=== PATIENT | male | born 1950 | race Caucasian/White ===

== ENCOUNTER 2022-10-25 16:22 | Observation (INO) | payer MEDICARE ==
[2022-10-25 17:00] LABS: Absolute Neutrophil Ct (ANC) 4.59 x10^3/uL (1.4-6.9); Basophil (Absolute #) 0.03 x10^3/uL (0-0.4); Eosinophil % 1.3 % (0.00-5.0); Eosinophil (Absolute #) 0.09 x10^3/uL (0-0.5); Hematocrit 38.1 % (42-50); Hemoglobin 11.5 g/dL (12.5-18.0); Lymphocytes % 22.5 % (24.0-44.0); Mean Cell Volume 107.6 fL (78-100); Mean Corpuscular Hemoglobin 32.5 pg (26-32); Mean Corpuscular Hgb Concent. 30.2 g/dL (32-36); Monocyte (Absolute #) 0.77 x10^3/uL (0.0-1.3); Monocytes % 10.8 % (0.0-12.0); Neutrophil % 64.4 % (36.0-66.0); Platelet Count 164 x10^3/uL (150-450); Red Blood Count 3.54 x10^6/uL (4.1-5.6); Red Cell Distribution Width 12.9 % (11.5-14.0); White Blood Count 7.1 x10^3/uL (4.0-10.5)
--- NOTE | 2022-10-25 17:03 | XRAY ---
Indication: Right chest pain 1 week. Comparison: None Portable chest inflated and clear. Heart not enlarged with CABG. Bony thorax intact with osteopenia and degenerative changes. Impression: Nonacute chest with chronic features.
[2022-10-25] MEDS ORDERED: BABY ASPIRIN 81 MG CHEW PO ONE (17:24)
[2022-10-25] MEDS ORDERED: BABY ASPIRIN 81 MG CHEW ONE (17:25)
[2022-10-25 17:32] LABS: ALBUMIN 4.3 g/dL (3.5-5.0); ALKALINE PHOSPHATASE 90 U/L (38-126); ANION GAP 14.6 MEQ/L (5-15); BLOOD UREA NITROGEN 23 mg/dL (9-20); CHLORIDE 100 mmol/L (98-107); Calcium 8.8 mg/dL (8.4-10.2); Carbon Dioxide 26 mmol/L (22-30); Creatinine 1 1.01 mg/dL (0.66-1.25); EST GLOMERULAR FILTRATION RATE > 60.0 ML/MIN; Glucose 149 mg/dL (74-106); NT PRO BNP 302 pg/mL (0-900); Potassium 4.9 mmol/L (3.5-5.1); SGOT/AST 31 U/L (17-59); SGPT/ALT 19 U/L (0-50); SODIUM 136 mmol/L (137-145); Total Protein 7.2 g/dL (6.3-8.2)
--- NOTE | 2022-10-25 18:04 | ERPHSYRPT ---
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 Patient has been experiencing intermittent chest pain for approximately 1 week. Chest pain worse with exertion improves with rest. Patient has a history of CABG. Pain rated 5 out of 10. Patient states he recently moved locally from [place]. No associated nausea vomiting or diaphoresis. Symptoms are intermittent. Symptoms are moderate in intensity. Patient voices no other complaint or concerns at this time. Portions of this note were created with voice recognition technology. There may be grammatical, spelling, punctuation or sound alike errors Timing/Duration: week(s) (1 week) Activities at Onset: activity Quality: aching Location: substernal Chest Pain Radiation: no radiation Severity of Pain-Max: moderate Severity of Pain-Current: mild Modifying Factors: Improves With: nothing Associated Symptoms: denies symptoms Prior Chest Pain/Cardiac Workup: no prior chest pain Nitro Today/Relief: no nitro taken today Aspirin Treatment Today: no aspirin today Allergies/Adverse Reactions: Penicillins Allergy (Verified 10/25/22 16:45) Home Medications: Clopidogrel Bisulfate [PLAVIX Tablet] 75 mg PO DAILY 10/25/22 [History] Glipizide 5 mg [Glucotrol 5 MG] 5 mg PO DAILY 10/25/22 [History] Metformin HCl [Metformin ER Osmotic] 1,000 mg PO BID 10/25/22 [History] Sertraline HCl [Zoloft] 100 mg PO DAILY 10/25/22 [History] lisinopriL [Zestril] 2.5 mg PO DAILY 10/25/22 [History] Hx Influenza Vaccination/Date Given: Yes Immunizations Up to Date: Yes Travel Risk - International Travel Have you traveled outside of the country in past 3 weeks: No - Coronavirus Screening Are you exhibiting any of the following symptoms?: No Close contact with a COVID-19 positive Pt in past 14-21 Days: No - Vaccine Status Have you recieved a Covid-19 vaccination: Yes 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: [employer] - Vaccination Dates Date of 2cond Vaccination (if applicable): 2020 - Review of Systems Constitutional: No Symptoms, No Fever, No Chills Eyes: No Symptoms Ears, Nose, & Throat: No Symptoms Respiratory: No Symptoms, No Cough, No Dyspnea Cardiac: No Symptoms, No Chest Pain, No Edema, No Syncope Abdominal/Gastrointestinal: No Symptoms, No Abdominal Pain, No Nausea, No Vomiting, No Diarrhea Genitourinary Symptoms: No Symptoms, No Dysuria Musculoskeletal: No Symptoms, No Back Pain, No Neck Pain Skin: No Symptoms, No Rash Neurological: No Symptoms, No Dizziness, No Focal Weakness, No Sensory Changes Psychological: No Symptoms Endocrine: No Symptoms Hematologic/Lymphatic: No Symptoms Immunological/Allergic: No Symptoms All Other Systems: Reviewed and Negative - Past Medical History Pertinent Past Medical History: Yes Cardiac History: High Cholesterol, Hypertension, Myocardial Infarction ([place]) Endocrine Medical History: Diabetes Type II Psycho-Social History: Anxiety - Past Surgical History Past Surgical History: Yes Cardiac: CABG Musculoskeletal: Orthopedic Surgery - Social History Smoking Status: Current every day smoker Exposure to second hand smoke: Yes Drug Use: none Patient Lives Alone: No - Nursing Vital Signs Nursing Vital Signs: Initial Vital Signs Temperature 97.5 F 10/25/22 16:23 Pulse Rate 75 10/25/22 16:23 Respiratory Rate 14 10/25/22 16:23 Blood Pressure 112/92 10/25/22 16:23 O2 Sat by Pulse Oximetry 99 10/25/22 16:23 Pain Scale Pain Intensity 3 - Physical Exam General Appearance: no apparent distress, alert Eye Exam: PERRL/EOMI, eyes nml inspection Ears, Nose, Throat Exam: normal ENT inspection, moist mucous membranes Neck Exam: normal inspection, non-tender, supple, full range of motion Respiratory Exam: normal breath sounds, lungs clear, airway intact, No resp iratory distress Cardiovascular Exam: regular rate/rhythm, normal heart sounds, normal peripheral pulses Gastrointestinal/Abdomen Exam: soft, normal bowel sounds, No tenderness, No mass Back Exam: normal inspection, No CVA tenderness, No vertebral tenderness Extremity Exam: normal inspection, normal range of motion Neurologic Exam: alert, oriented x 3, cooperative, normal mood/affect, sensation nml, No motor deficits Skin Exam: normal color, warm, dry Lymphatic Exam: No adenopathy SpO2 Interpretation: normal SpO2: 96 O2 Delivery: Room Air - Course Nursing assessment & vital signs reviewed: Yes EKG Interpreted by Me: RATE (75), Sinus Rhythm, Right [place] Deviation, NORMAL INTERVALS, NORMAL QRS - Radiology Exams Chest X-ray Interpretation: Teleradiologist Report (Nonacute chest with chronic features) Ordered Tests: Active Orders 24 hr Category Date Time Status 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 Care 10/25/22 16:45 Active EKG-ER Only STAT Care 10/25/22 16:44 Active IV Insertion STAT Care 10/25/22 16:44 Active Pulse Oximetry (ED) STAT Care 10/25/22 16:44 Active CHEST 1 VIEW (PORTABLE) Stat Exams 10/25/22 16:44 Completed CBC W DIFF Stat Lab 10/25/22 16:58 Completed CMP Stat Lab 10/25/22 16:58 Completed NT PRO BNP Stat Lab 10/25/22 16:58 Completed TROPONIN Q4H Lab 10/25/22 16:58 Completed TROPONIN Q4H Lab 10/25/22 20:45 Ordered TROPONIN Q4H Lab 10/26/22 00:45 Ordered UA W/RFX CULTURE Stat Lab 10/25/22 Ordered Medication Summary Discontinued Medications Generic Name Dose Route Start Last Admin Trade Name Freq PRN Reason Stop Dose Admin Aspirin 243 mg 10/25/22 17:24 10/25/22 17:25 Aspirin 81 Mg Tab.Chew PO 10/25/22 17:25 243 mg STAT ONE Administration Aspirin Confirm 10/25/22 17:25 Aspirin 81 Mg Tab.Chew Administered 10/25/22 17:26 Dose 243 mg .ROUTE .STK-MED ONE Nitroglycerin 1 gm 10/25/22 19:53 Nitroglycerin 1 Gm Packet TOP 10/25/22 19:54 STAT ONE Lab/Rad Data: Laboratory Result Diagrams 10/25/22 16:58 10/25/22 16:58 Laboratory Results 10/25/22 10/25/22 10/25/22 Range/Units 18:45 16:58 16:58 WBC (4.0-10.5) x10^3/uL RBC (4.1-5.6) x10^6/uL Hgb (12.5-18.0) g/dL Hct (42-50) % MCV (78-100) fL MCH (26-32) pg MCHC (32-36) g/dL RDW (11.5-14.0) % Plt Count (150-450) x10^3/uL MPV (7.5-11.0) fL Gran % (36.0-66.0) % Immature Gran % (Auto) (0.00-0.4) % Nucleat RBC Rel Count (0.00-0.1) % Eos # (Auto) (0-0.5) x10^3/uL Immature Gran # (Auto) (0.00-0.03) x10^3u/L Absolute Lymphs (auto) (1.0-4.6) x10^3/uL Absolute Monos (auto) (0.0-1.3) x10^3/uL Absolute Nucleated RBC (0.00-0.01) x10^3u/L Lymphocytes % (24.0-44.0) % Monocytes % (0.0-12.0) % Eosinophils % (0.00-5.0) % Basophils % (0.0-0.4) % Absolute Granulocytes (1.4-6.9) x10^3/uL Basophils # (0-0.4) x10^3/uL Sodium 136 L (137-145) mmol/L Potassium 4.9 (3.5-5.1) mmol/L Chloride 100 (98-107) mmol/L Carbon Dioxide 26 (22-30) mmol/L Anion Gap 14.6 (5-15) MEQ/L BUN 23 H (9-20) mg/dL Creatinine 1.01 (0.66-1.25) mg/dL Estimated GFR > 60.0 ML/MIN Glucose 149 H (74-106) mg/dL Calcium 8.8 (8.4-10.2) mg/dL Total Bilirubin 0.40 (0.2-1.3) mg/dL AST 31 (17-59) U/L ALT 19 (0-50) U/L Alkaline Phosphatase 90 (38-126) U/L Troponin I < 0.012 (0.000-0.034) ng/mL NT-Pro-B Natriuret Pep 302 (0-900) pg/mL Serum Total Protein 7.2 (6.3-8.2) g/dL Albumin 4.3 (3.5-5.0) g/dL Influenza Type A Ag NEGATIVE (NEGATIVE) Influenza Type B Ag NEGATIVE (NEGATIVE) RSV (PCR) NEGATIVE (Negative) SARS-CoV-2 (PCR) NEGATIVE (NEGATIVE) 10/25/22 Range/Units 16:58 WBC 7.1 (4.0-10.5) x10^3/uL RBC 3.54 L (4.1-5.6) x10^6/uL Hgb 11.5 L (12.5-18.0) g/dL Hct 38.1 L (42-50) % MCV 107.6 H (78-100) fL MCH 32.5 H (26-32) pg MCHC 30.2 L (32-36) g/dL RDW 12.9 (11.5-14.0) % Plt Count 164 (150-450) x10^3/uL MPV 11.0 (7.5-11.0) fL Gran % 64.4 (36.0-66.0) % Immature Gran % (Auto) 0.6 H (0.00-0.4) % Nucleat RBC Rel Count 0.0 (0.00-0.1) % Eos # (Auto) 0.09 (0-0.5) x10^3/uL Immature Gran # (Auto) 0.04 H (0.00-0.03) x10^3u/L Absolute Lymphs (auto) 1.60 (1.0-4.6) x10^3/uL Absolute Monos (auto) 0.77 (0.0-1.3) x10^3/uL Absolute Nucleated RBC 0.00 (0.00-0.01) x10^3u/L Lymphocytes % 22.5 L (24.0-44.0) % Monocytes % 10.8 (0.0-12.0) % Eosinophils % 1.3 (0.00-5.0) % Basophils % 0.4 (0.0-0.4) % Absolute Granulocytes 4.59 (1.4-6.9) x10^3/uL Basophils # 0.03 (0-0.4) x10^3/uL Sodium (137-145) mmol/L Potassium (3.5-5.1) mmol/L Chloride (98-107) mmol/L Carbon Dioxide (22-30) mmol/L Anion Gap (5-15) MEQ/L BUN (9-20) mg/dL Creatinine (0.66-1.25) mg/dL Estimated GFR ML/MIN Glucose (74-106) mg/dL Calcium (8.4-10.2) mg/dL Total Bilirubin (0.2-1.3) mg/dL AST (17-59) U/L ALT (0-50) U/L Alkaline Phosphatase (38-126) U/L Troponin I (0.000-0.034) ng/mL NT-Pro-B Natriuret Pep (0-900) pg/mL Serum Total Protein (6.3-8.2) g/dL Albumin (3.5-5.0) g/dL Influenza Type A Ag (NEGATIVE) Influenza Type B Ag (NEGATIVE) RSV (PCR) (Negative) SARS-CoV-2 (PCR) (NEGATIVE) - Progress Progress: improved Air Movement: good Progress Note: 72-year-old male with a history of diabetes CABG presents to our ED with progressive chest pain. Preliminary work-up negative. But based on heart score patient will be admitted for further evaluation and treatment. Aspirin administered. Nitro paste administered. Case discussed with Dr. Varela who accepts admission to observation. Plan of care discussed with patient. He agrees to admission at [facility] for further evaluation and treatment. Portions of this note were created with voice recognition technology. There may be grammatical, spelling, punctuation or sound alike errors 10/25/22 19:57 Blood Culture(s) Obtained: No Antibiotics given: No Discussed with : Gerson Will see patient in: hospital (observation) Counseled pt/family regarding: lab results, diagnosis, rad results - Departure Departure Disposition: Observation Clinical Impression: Chest pain, Megaloblastic anemia Condition: Stable Critical Care Time: No Referrals: JERONIMO BACA, [Primary Care Provider] - Follow up/PCP as directed
[2022-10-25 19:28] LABS: INFLUENZA A NEGATIVE (NEGATIVE); INFLUENZA B NEGATIVE (NEGATIVE); RESPIRATORY SYNCTIAL VIRUS NEGATIVE (Negative); SARS-CoV-2 Xpert Express NEGATIVE (NEGATIVE)
[2022-10-25] MEDS ORDERED: NITRO-BID 2% UD PACKETS TOP ONE (19:53)
[2022-10-25] MEDS ORDERED: NITRO-BID 2% UD PACKETS ONE (20:23)
[2022-10-25] MEDS ORDERED: Zofran 4 MG/2 ML VIAL IV PRN (20:44)
[2022-10-25] MEDS ORDERED: TYLENOL 325 MG PO PRN (20:44)
[2022-10-25] MEDS ORDERED: Senokot-S Tablet PO PRN (20:44)
[2022-10-25] MEDS ORDERED: MILK OF MAGNESIA 30 ML PO PRN (20:44)
[2022-10-25] MEDS ORDERED: MAALOX ES 30 ML UNIT DOSE PO PRN (20:44)
[2022-10-25] MEDS ORDERED: Glucophage 500 MG ONE (21:58)
[2022-10-25] MEDS ORDERED: Glucophage XR 500 MG PO ONE (22:01)
[2022-10-25] MEDS ORDERED: NICODERM CQ 14 MG TOP SCH (22:30)
[2022-10-25 23:40] LABS: Epithelial Cells RARE /HPF (FEW)
[2022-10-25 23:42] LABS: Appearance CLEAR (CLEAR); Bilirubin NEGATIVE (NEGATIVE); Glucose NEGATIVE (NEGATIVE); Ketones NEGATIVE (NEGATIVE); Ph 6.5 (5-6); Protein,Urine Dip NEGATIVE (Negative); RBC NEGATIVE Ery/ul (0-5); Specific Gravity 1.015 (1.005-1.025)
[2022-10-25 23:43] LABS: Dipstick done @ ? MAIN LAB; Nitrite NEGATIVE (NEGATIVE); Urine Cultured Indicated? NO; Urobilinogen 0.2 mg/dL (0-1)
[2022-10-26 06:19] LABS: Cholesterol 88 mg/dL (50-200); HDL CHOLESTEROL 34 mg/dL (40-60); LDL, DIRECT < 36 mg/dL (30-100); Risk Ratio 2.6; TRIGLYCERIDE 178 mg/dL (30-150)
[2022-10-26] MEDS ORDERED: Ecotrin 325 MG PO SCH (10:00)
[2022-10-26 11:51] VITALS: BP 128/67; PULSE 76; O2SAT 93
--- NOTE | 2022-10-26 13:41 | PCM.SSS ---
History of Present Illness - Chief Complaint Chief Complaint: ACS History of Present Illness: is a 72 year old male with Hx CAD who presented to ER C/O intermittent chest pain x 1 week. Patient has just moved,drove himself to [facility] from [place]. Denies N/V or diaphoresis. ER evaluation - EKG NSR with right axis deviation,troponins were not elevated. CXR no acute changes. PMHx includes HTN,HLD,CAD/S/P CABG, DM2,COPD ,current smoker and chronic anxiety. Patient is admitted to [facility] OBS. R/O MA. Medications & Allergies Home Medications: Home Medication List Clopidogrel Bisulfate [PLAVIX Tablet] 75 mg PO DAILY 10/25/22 [History Confirmed 10/25/22] Glipizide 5 mg [Glucotrol 5 MG] 10 mg PO BID 10/25/22 [History Confirmed 10/26/22] Metformin HCl [Metformin ER Osmotic] 1,000 mg PO BID 10/25/22 [History Confirmed 10/25/22] RX: lisinopriL [Zestril] 2.5 mg PO DAILY 10/25/22 [History Confirmed 10/25/22] Sertraline HCl [Zoloft] 50 mg PO DAILY 10/25/22 [History Confirmed 10/26/22] Aspirin EC 81 mg [Ecotrin 81 mg] 81 mg PO DAILY 10/26/22 [History Confirmed 10/26/22] Atorvastatin Calcium [Lipitor] 80 mg PO HS 10/26/22 [History Confirmed 10/26/22] Carvedilol 3.125 mg [Coreg 3.125 MG] 3.125 mg PO BID 10/26/22 [History Confirmed 10/26/22] Ferrous Sulfate 325 mg [Feosol 325 mg] 325 mg PO DAILY 10/26/22 [History Confirmed 10/26/22] RX: Albuterol Common Canister [Ventolin Common Canister] 2 puff IH Q4HPRN PRN 30 Days #1 inhaler 10/26/22 [Rx] RX: Famotidine 20 mg [Pepcid 20 MG] 20 mg PO BID 10/26/22 [History Confirmed 10/26/22] RX: Pioglitazone HCl 30 mg PO DAILY 10/26/22 [History Confirmed 10/26/22] RX: Tamsulosin HCl 0.4 mg [Flomax 0.4 MG] 0.4 mg PO DAILY 10/26/22 [History Confirmed 10/26/22] RX: Trazodone HCl 50 mg [Desyrel 50 mg] 50 mg PO HS 30 Days #30 tablet [Rx] Allergies/Adverse Reactions: Allergies Allergy/AdvReac Type Severity Reaction Status Date / Time Penicillins Allergy Verified 10/25/22 16:45 - Past Medical History Past Medical History: Yes Neurological History: No Pertinent History ENT History: No Pertinent History Cardiac History: High Cholesterol, Hypertension, Myocardial Infarction (MA) Respiratory History: No Pertinent History Endocrine Medical History: Diabetes Type II Musculoskelatal History: No Pertinent History GI Medical History: No Pertinent History History: No Pertinent History Pyscho-Social History: Anxiety Male Reproductive Disorders: No Pertinent History - Past Surgical History Past Surgical History: Yes Neuro Surgical History: No Pertinent History Cardiac History: CABG GI Surgical History: No Pertinent History Genitourinary Surgical Hx: No Pertinent History Musculskeletal Surgical Hx: Orthopedic Surgery Male Surgical History: No Pertinent History Other Surgical History: lt wrist, rt elbow, rt shoulder - Social History Smoking Status: Current every day smoker Exposure to second hand smoke: No Alcohol: None Drug Use: none - Physical Exam Vital Signs: Vital Signs - 24 hr Temp Pulse Resp BP Pulse Ox 10/26/22 11:50 98.3 F 76 19 128/67 93 L 10/26/22 07:35 97.9 F 66 18 139/71 90 L 10/26/22 04:00 97.7 F 65 17 129/67 89 L 10/25/22 21:10 97.3 F 72 18 141/85 96 10/25/22 21:09 97.3 F 73 16 137/77 91 L 10/25/22 20:07 72 18 141/85 96 10/25/22 19:58 96 10/25/22 19:36 72 19 129/89 95 10/25/22 18:00 74 16 125/75 97 10/25/22 17:26 96 10/25/22 17:00 76 18 123/88 96 10/25/22 16:23 97.5 F 75 14 112/92 99 General Appearance: no apparent distress Neurologic Exam: alert, oriented x 3, cooperative, normal mood/affect, nml cerebellar function Eye Exam: eyes nml inspection Ears, Nose, Throat Exam: normal ENT inspection Neck Exam: normal inspection Respiratory Exam: wheezing Cardiovascular Exam: regular rate/rhythm Gastrointestinal/Abdomen Exam: soft, No tenderness Rectal Exam: not done Back Exam: muscle spasm, other, No CVA tenderness Results - Labs Lab/Micro Results: Lab Results-Last 24 Hours 10/25/22 10/25/22 10/25/22 Range/Units 16:58 16:58 16:58 WBC 7.1 (4.0-10.5) x10^3/uL RBC 3.54 L (4.1-5.6) x10^6/uL Hgb 11.5 L (12.5-18.0) g/dL Hct 38.1 L (42-50) % MCV 107.6 H (78-100) fL MCH 32.5 H (26-32) pg MCHC 30.2 L (32-36) g/dL RDW 12.9 (11.5-14.0) % Plt Count 164 (150-450) x10^3/uL MPV 11.0 (7.5-11.0) fL Gran % 64.4 (36.0-66.0) % Immature Gran % (Auto) 0.6 H (0.00-0.4) % Nucleat RBC Rel Count 0.0 (0.00-0.1) % Eos # (Auto) 0.09 (0-0.5) x10^3/uL Immature Gran # (Auto) 0.04 H (0.00-0.03) x10^3u/L Absolute Lymphs (auto) 1.60 (1.0-4.6) x10^3/uL Absolute Monos (auto) 0.77 (0.0-1.3) x10^3/uL Absolute Nucleated RBC 0.00 (0.00-0.01) x10^3u/L Lymphocytes % 22.5 L (24.0-44.0) % Monocytes % 10.8 (0.0-12.0) % Eosinophils % 1.3 (0.00-5.0) % Basophils % 0.4 (0.0-0.4) % Absolute Granulocytes 4.59 (1.4-6.9) x10^3/uL Basophils # 0.03 (0-0.4) x10^3/uL Sodium 136 L (137-145) mmol/L Potassium 4.9 (3.5-5.1) mmol/L Chloride 100 (98-107) mmol/L Carbon Dioxide 26 (22-30) mmol/L Anion Gap 14.6 (5-15) MEQ/L BUN 23 H (9-20) mg/dL Creatinine 1.01 (0.66-1.25) mg/dL Estimated GFR > 60.0 ML/MIN Glucose 149 H (74-106) mg/dL POC Glucometer (74 to 106) mg/dL Calcium 8.8 (8.4-10.2) mg/dL Total Bilirubin 0.40 (0.2-1.3) mg/dL AST 31 (17-59) U/L ALT 19 (0-50) U/L Alkaline Phosphatase 90 (38-126) U/L Troponin I < 0.012 (0.000-0.034) ng/mL NT-Pro-B Natriuret Pep 302 (0-900) pg/mL Serum Total Protein 7.2 (6.3-8.2) g/dL Albumin 4.3 (3.5-5.0) g/dL Triglycerides (30-150) mg/dL Cholesterol (50-200) mg/dL LDL Cholesterol (30-100) mg/dL HDL Cholesterol (40-60) mg/dL Heart Disease Risk Ratio Urinalys Dipstick Clnc Urine Color (YELLOW) Urine Appearance (CLEAR) Urine pH (5-6) Ur Specific [place] (1.005-1.025) POC Urine Protein Conf (Negative) Urine Ketones (NEGATIVE) Urine Nitrite (NEGATIVE) Urine Bilirubin (NEGATIVE) Urine Urobilinogen (0-1) mg/dL Urine Leukocytes (NEGATIVE) Urine WBC (Auto) (0-5) /HPF Urine RBC (Auto) U Epithel Cells (Auto) (FEW) /HPF Urine Bacteria (Auto) Urine RBC (0-5) Gunnar/ul Ur Culture Indicated? Urine Glucose (NEGATIVE) mg/dL Influenza Type A Ag (NEGATIVE) Influenza Type B Ag (NEGATIVE) RSV (PCR) (Negative) SARS-CoV-2 (PCR) (NEGATIVE) 10/25/22 10/25/22 10/25/22 Range/Units 18:45 21:05 23:25 WBC (4.0-10.5) x10^3/uL RBC (4.1-5.6) x10^6/uL Hgb (12.5-18.0) g/dL Hct (42-50) % MCV (78-100) fL MCH (26-32) pg MCHC (32-36) g/dL RDW (11.5-14.0) % Plt Count (150-450) x10^3/uL MPV (7.5-11.0) fL Gran % (36.0-66.0) % Immature Gran % (Auto) (0.00-0.4) % Nucleat RBC Rel Count (0.00-0.1) % Eos # (Auto) (0-0.5) x10^3/uL Immature Gran # (Auto) (0.00-0.03) x10^3u/L Absolute Lymphs (auto) (1.0-4.6) x10^3/uL Absolute Monos (auto) (0.0-1.3) x10^3/uL Absolute Nucleated RBC (0.00-0.01) x10^3u/L Lymphocytes % (24.0-44.0) % Monocytes % (0.0-12.0) % Eosinophils % (0.00-5.0) % Basophils % (0.0-0.4) % Absolute Granulocytes (1.4-6.9) x10^3/uL Basophils # (0-0.4) x10^3/uL Sodium (137-145) mmol/L Potassium (3.5-5.1) mmol/L Chloride (98-107) mmol/L Carbon Dioxide (22-30) mmol/L Anion Gap (5-15) MEQ/L BUN (9-20) mg/dL Creatinine (0.66-1.25) mg/dL Estimated GFR ML/MIN Glucose (74-106) mg/dL POC Glucometer (74 to 106) mg/dL Calcium (8.4-10.2) mg/dL Total Bilirubin (0.2-1.3) mg/dL AST (17-59) U/L ALT (0-50) U/L Alkaline Phosphatase (38-126) U/L Troponin I < 0.012 (0.000-0.034) ng/mL NT-Pro-B Natriuret Pep (0-900) pg/mL Serum Total Protein (6.3-8.2) g/dL Albumin (3.5-5.0) g/dL Triglycerides (30-150) mg/dL Cholesterol (50-200) mg/dL LDL Cholesterol (30-100) mg/dL HDL Cholesterol (40-60) mg/dL Heart Disease Risk Ratio Urinalys Dipstick Clnc MAIN LAB Urine Color YELLOW (YELLOW) Urine Appearance CLEAR (CLEAR) Urine pH 6.5 (5-6) Ur Specific [place] 1.015 (1.005-1.025) POC Urine Protein Conf NEGATIVE (Negative) Urine Ketones NEGATIVE (NEGATIVE) Urine Nitrite NEGATIVE (NEGATIVE) Urine Bilirubin NEGATIVE (NEGATIVE) Urine Urobilinogen 0.2 (0-1) mg/dL Urine Leukocytes NEGATIVE (NEGATIVE) Urine WBC (Auto) NONE (0-5) /HPF Urine RBC (Auto) Not Reportable U Epithel Cells (Auto) RARE (FEW) /HPF Urine Bacteria (Auto) Not Reportable Urine RBC NEGATIVE (0-5) Gunnar/ul Ur Culture Indicated? NO Urine Glucose NEGATIVE (NEGATIVE) mg/dL Influenza Type A Ag NEGATIVE (NEGATIVE) Influenza Type B Ag NEGATIVE (NEGATIVE) RSV (PCR) NEGATIVE (Negative) SARS-CoV-2 (PCR) NEGATIVE (NEGATIVE) 10/26/22 10/26/22 10/26/22 Range/Units 00:35 04:35 07:05 WBC (4.0-10.5) x10^3/uL RBC (4.1-5.6) x10^6/uL Hgb (12.5-18.0) g/dL Hct (42-50) % MCV (78-100) fL MCH (26-32) pg MCHC (32-36) g/dL RDW (11.5-14.0) % Plt Count (150-450) x10^3/uL MPV (7.5-11.0) fL Gran % (36.0-66.0) % Immature Gran % (Auto) (0.00-0.4) % Nucleat RBC Rel Count (0.00-0.1) % Eos # (Auto) (0-0.5) x10^3/uL Immature Gran # (Auto) (0.00-0.03) x10^3u/L Absolute Lymphs (auto) (1.0-4.6) x10^3/uL Absolute Monos (auto) (0.0-1.3) x10^3/uL Absolute Nucleated RBC (0.00-0.01) x10^3u/L Lymphocytes % (24.0-44.0) % Monocytes % (0.0-12.0) % Eosinophils % (0.00-5.0) % Basophils % (0.0-0.4) % Absolute Granulocytes (1.4-6.9) x10^3/uL Basophils # (0-0.4) x10^3/uL Sodium (137-145) mmol/L Potassium (3.5-5.1) mmol/L Chloride (98-107) mmol/L Carbon Dioxide (22-30) mmol/L Anion Gap (5-15) MEQ/L BUN (9-20) mg/dL Creatinine (0.66-1.25) mg/dL Estimated GFR ML/MIN Glucose (74-106) mg/dL POC Glucometer 73 L (74 to 106) mg/dL Calcium (8.4-10.2) mg/dL Total Bilirubin (0.2-1.3) mg/dL AST (17-59) U/L ALT (0-50) U/L Alkaline Phosphatase (38-126) U/L Troponin I < 0.012 (0.000-0.034) ng/mL NT-Pro-B Natriuret Pep (0-900) pg/mL Serum Total Protein (6.3-8.2) g/dL Albumin (3.5-5.0) g/dL Triglycerides 178 H (30-150) mg/dL Cholesterol 88 (50-200) mg/dL LDL Cholesterol < 36 (30-100) mg/dL HDL Cholesterol 34 L (40-60) mg/dL Heart Disease Risk Ratio 2.6 Urinalys Dipstick Clnc Urine Color (YELLOW) Urine Appearance (CLEAR) Urine pH (5-6) Ur Specific [place] (1.005-1.025) POC Urine Protein Conf (Negative) Urine Ketones (NEGATIVE) Urine Nitrite (NEGATIVE) Urine Bilirubin (NEGATIVE) Urine Urobilinogen (0-1) mg/dL Urine Leukocytes (NEGATIVE) Urine WBC (Auto) (0-5) /HPF Urine RBC (Auto) U Epithel Cells (Auto) (FEW) /HPF Urine Bacteria (Auto) Urine RBC (0-5) Gunnar/ul Ur Culture Indicated? Urine Glucose (NEGATIVE) mg/dL Influenza Type A Ag (NEGATIVE) Influenza Type B Ag (NEGATIVE) RSV (PCR) (Negative) SARS-CoV-2 (PCR) (NEGATIVE) 10/26/22 Range/Units 11:01 WBC (4.0-10.5) x10^3/uL RBC (4.1-5.6) x10^6/uL Hgb (12.5-18.0) g/dL Hct (42-50) % MCV (78-100) fL MCH (26-32) pg MCHC (32-36) g/dL RDW (11.5-14.0) % Plt Count (150-450) x10^3/uL MPV (7.5-11.0) fL Gran % (36.0-66.0) % Immature Gran % (Auto) (0.00-0.4) % Nucleat RBC Rel Count (0.00-0.1) % Eos # (Auto) (0-0.5) x10^3/uL Immature Gran # (Auto) (0.00-0.03) x10^3u/L Absolute Lymphs (auto) (1.0-4.6) x10^3/uL Absolute Monos (auto) (0.0-1.3) x10^3/uL Absolute Nucleated RBC (0.00-0.01) x10^3u/L Lymphocytes % (24.0-44.0) % Monocytes % (0.0-12.0) % Eosinophils % (0.00-5.0) % Basophils % (0.0-0.4) % Absolute Granulocytes (1.4-6.9) x10^3/uL Basophils # (0-0.4) x10^3/uL Sodium (137-145) mmol/L Potassium (3.5-5.1) mmol/L Chloride (98-107) mmol/L Carbon Dioxide (22-30) mmol/L Anion Gap (5-15) MEQ/L BUN (9-20) mg/dL Creatinine (0.66-1.25) mg/dL Estimated GFR ML/MIN Glucose (74-106) mg/dL POC Glucometer 166 H (74 to 106) mg/dL Calcium (8.4-10.2) mg/dL Total Bilirubin (0.2-1.3) mg/dL AST (17-59) U/L ALT (0-50) U/L Alkaline Phosphatase (38-126) U/L Troponin I (0.000-0.034) ng/mL NT-Pro-B Natriuret Pep (0-900) pg/mL Serum Total Protein (6.3-8.2) g/dL Albumin (3.5-5.0) g/dL Triglycerides (30-150) mg/dL Cholesterol (50-200) mg/dL LDL Cholesterol (30-100) mg/dL HDL Cholesterol (40-60) mg/dL Heart Disease Risk Ratio Urinalys Dipstick Clnc Urine Color (YELLOW) Urine Appearance (CLEAR) Urine pH (5-6) Ur Specific [place] (1.005-1.025) POC Urine Protein Conf (Negative) Urine Ketones (NEGATIVE) Urine Nitrite (NEGATIVE) Urine Bilirubin (NEGATIVE) Urine Urobilinogen (0-1) mg/dL Urine Leukocytes (NEGATIVE) Urine WBC (Auto) (0-5) /HPF Urine RBC (Auto) U Epithel Cells (Auto) (FEW) /HPF Urine Bacteria (Auto) Urine RBC (0-5) Gunnar/ul Ur Culture Indicated? Urine Glucose (NEGATIVE) mg/dL Influenza Type A Ag (NEGATIVE) Influenza Type B Ag (NEGATIVE) RSV (PCR) (Negative) SARS-CoV-2 (PCR) (NEGATIVE) Accuchecks Date 10/26/22 Date 10/26/22 Time 11:18 Time 07:35 - Radiology Impressions Radiology Exams & Impressions: Radiology Procedures Category Date Time Status CHEST 1 VIEW (PORTABLE) Stat Exams 10/25/22 16:44 Completed CHEST WITH CONTRAST [CT] Urgent Exams 10/26/22 13:38 Ordered - Other Procedures and Tests Respiratory Therapy 10/27/22 05:00 EKG ROUTINE 10/28/22 05:00 EKG ROUTINE Hospital Summary - Vitals & Intake/Output Vital Signs: Vital Signs Temperature 98.3 F 10/26/22 11:50 Pulse Rate 76 10/26/22 11:50 Respiratory Rate 19 10/26/22 11:50 Blood Pressure 128/67 10/26/22 11:50 O2 Sat by Pulse Oximetry 93 L 10/26/22 11:50 Intake & Output: Intake & Output 10/24/22 10/25/22 10/26/22 10/27/22 11:59 11:59 11:59 11:59 Intake Total 480 240 Output Total 500 Balance -20 240 Weight 84.9 kg - Lab Result Diagrams: 10/25/22 16:58 10/25/22 16:58 Lab Results-Last 24 Hrs: Lab Results-Last 24 Hours 10/25/22 10/25/22 10/25/22 Range/Units 16:58 16:58 16:58 WBC 7.1 (4.0-10.5) x10^3/uL RBC 3.54 L (4.1-5.6) x10^6/uL Hgb 11.5 L (12.5-18.0) g/dL Hct 38.1 L (42-50) % MCV 107.6 H (78-100) fL MCH 32.5 H (26-32) pg MCHC 30.2 L (32-36) g/dL RDW 12.9 (11.5-14.0) % Plt Count 164 (150-450) x10^3/uL MPV 11.0 (7.5-11.0) fL Gran % 64.4 (36.0-66.0) % Immature Gran % (Auto) 0.6 H (0.00-0.4) % Nucleat RBC Rel Count 0.0 (0.00-0.1) % Eos # (Auto) 0.09 (0-0.5) x10^3/uL Immature Gran # (Auto) 0.04 H (0.00-0.03) x10^3u/L Absolute Lymphs (auto) 1.60 (1.0-4.6) x10^3/uL Absolute Monos (auto) 0.77 (0.0-1.3) x10^3/uL Absolute Nucleated RBC 0.00 (0.00-0.01) x10^3u/L Lymphocytes % 22.5 L (24.0-44.0) % Monocytes % 10.8 (0.0-12.0) % Eosinophils % 1.3 (0.00-5.0) % Basophils % 0.4 (0.0-0.4) % Absolute Granulocytes 4.59 (1.4-6.9) x10^3/uL Basophils # 0.03 (0-0.4) x10^3/uL Sodium 136 L (137-145) mmol/L Potassium 4.9 (3.5-5.1) mmol/L Chloride 100 (98-107) mmol/L Carbon Dioxide 26 (22-30) mmol/L Anion Gap 14.6 (5-15) MEQ/L BUN 23 H (9-20) mg/dL Creatinine 1.01 (0.66-1.25) mg/dL Estimated GFR > 60.0 ML/MIN Glucose 149 H (74-106) mg/dL POC Glucometer (74 to 106) mg/dL Calcium 8.8 (8.4-10.2) mg/dL Total Bilirubin 0.40 (0.2-1.3) mg/dL AST 31 (17-59) U/L ALT 19 (0-50) U/L Alkaline Phosphatase 90 (38-126) U/L Troponin I < 0.012 (0.000-0.034) ng/mL NT-Pro-B Natriuret Pep 302 (0-900) pg/mL Serum Total Protein 7.2 (6.3-8.2) g/dL Albumin 4.3 (3.5-5.0) g/dL Triglycerides (30-150) mg/dL Cholesterol (50-200) mg/dL LDL Cholesterol (30-100) mg/dL HDL Cholesterol (40-60) mg/dL Heart Disease Risk Ratio Urinalys Dipstick Clnc Urine Color (YELLOW) Urine Appearance (CLEAR) Urine pH (5-6) Ur Specific [place] (1.005-1.025) POC Urine Protein Conf (Negative) Urine Ketones (NEGATIVE) Urine Nitrite (NEGATIVE) Urine Bilirubin (NEGATIVE) Urine Urobilinogen (0-1) mg/dL Urine Leukocytes (NEGATIVE) Urine WBC (Auto) (0-5) /HPF Urine RBC (Auto) U Epithel Cells (Auto) (FEW) /HPF Urine Bacteria (Auto) Urine RBC (0-5) Gunnar/ul Ur Culture Indicated? Urine Glucose (NEGATIVE) mg/dL Influenza Type A Ag (NEGATIVE) Influenza Type B Ag (NEGATIVE) RSV (PCR) (Negative) SARS-CoV-2 (PCR) (NEGATIVE) 10/25/22 10/25/22 10/25/22 Range/Units 18:45 21:05 23:25 WBC (4.0-10.5) x10^3/uL RBC (4.1-5.6) x10^6/uL Hgb (12.5-18.0) g/dL Hct (42-50) % MCV (78-100) fL MCH (26-32) pg MCHC (32-36) g/dL RDW (11.5-14.0) % Plt Count (150-450) x10^3/uL MPV (7.5-11.0) fL Gran % (36.0-66.0) % Immature Gran % (Auto) (0.00-0.4) % Nucleat RBC Rel Count (0.00-0.1) % Eos # (Auto) (0-0.5) x10^3/uL Immature Gran # (Auto) (0.00-0.03) x10^3u/L Absolute Lymphs (auto) (1.0-4.6) x10^3/uL Absolute Monos (auto) (0.0-1.3) x10^3/uL Absolute Nucleated RBC (0.00-0.01) x10^3u/L Lymphocytes % (24.0-44.0) % Monocytes % (0.0-12.0) % Eosinophils % (0.00-5.0) % Basophils % (0.0-0.4) % Absolute Granulocytes (1.4-6.9) x10^3/uL Basophils # (0-0.4) x10^3/uL Sodium (137-145) mmol/L Potassium (3.5-5.1) mmol/L Chloride (98-107) mmol/L Carbon Dioxide (22-30) mmol/L Anion Gap (5-15) MEQ/L BUN (9-20) mg/dL Creatinine (0.66-1.25) mg/dL Estimated GFR ML/MIN Glucose (74-106) mg/dL POC Glucometer (74 to 106) mg/dL Calcium (8.4-10.2) mg/dL Total Bilirubin (0.2-1.3) mg/dL AST (17-59) U/L ALT (0-50) U/L Alkaline Phosphatase (38-126) U/L Troponin I < 0.012 (0.000-0.034) ng/mL NT-Pro-B Natriuret Pep (0-900) pg/mL Serum Total Protein (6.3-8.2) g/dL Albumin (3.5-5.0) g/dL Triglycerides (30-150) mg/dL Cholesterol (50-200) mg/dL LDL Cholesterol (30-100) mg/dL HDL Cholesterol (40-60) mg/dL Heart Disease Risk Ratio Urinalys Dipstick Clnc MAIN LAB Urine Color YELLOW (YELLOW) Urine Appearance CLEAR (CLEAR) Urine pH 6.5 (5-6) Ur Specific [place] 1.015 (1.005-1.025) POC Urine Protein Conf NEGATIVE (Negative) Urine Ketones NEGATIVE (NEGATIVE) Urine Nitrite NEGATIVE (NEGATIVE) Urine Bilirubin NEGATIVE (NEGATIVE) Urine Urobilinogen 0.2 (0-1) mg/dL Urine Leukocytes NEGATIVE (NEGATIVE) Urine WBC (Auto) NONE (0-5) /HPF Urine RBC (Auto) Not Reportable U Epithel Cells (Auto) RARE (FEW) /HPF Urine Bacteria (Auto) Not Reportable Urine RBC NEGATIVE (0-5) Gunn[place]/ul Ur Culture Indicated? NO Urine Glucose NEGATIVE (NEGATIVE) mg/dL Influenza Type A Ag NEGATIVE (NEGATIVE) Influenza Type B Ag NEGATIVE (NEGATIVE) RSV (PCR) NEGATIVE (Negative) SARS-CoV-2 (PCR) NEGATIVE (NEGATIVE) 10/26/22 10/26/22 10/26/22 Range/Units 00:35 04:35 07:05 WBC (4.0-10.5) x10^3/uL RBC (4.1-5.6) x10^6/uL Hgb (12.5-18.0) g/dL Hct (42-50) % MCV (78-100) fL MCH (26-32) pg MCHC (32-36) g/dL RDW (11.5-14.0) % Plt Count (150-450) x10^3/uL MPV (7.5-11.0) fL Gran % (36.0-66.0) % Immature Gran % (Auto) (0.00-0.4) % Nucleat RBC Rel Count (0.00-0.1) % Eos # (Auto) (0-0.5) x10^3/uL Immature Gran # (Auto) (0.00-0.03) x10^3u/L Absolute Lymphs (auto) (1.0-4.6) x10^3/uL Absolute Monos (auto) (0.0-1.3) x10^3/uL Absolute Nucleated RBC (0.00-0.01) x10^3u/L Lymphocytes % (24.0-44.0) % Monocytes % (0.0-12.0) % Eosinophils % (0.00-5.0) % Basophils % (0.0-0.4) % Absolute Granulocytes (1.4-6.9) x10^3/uL Basophils # (0-0.4) x10^3/uL Sodium (137-145) mmol/L Potassium (3.5-5.1) mmol/L Chloride (98-107) mmol/L Carbon Dioxide (22-30) mmol/L Anion Gap (5-15) MEQ/L BUN (9-20) mg/dL Creatinine (0.66-1.25) mg/dL Estimated GFR ML/MIN Glucose (74-106) mg/dL POC Glucometer 73 L (74 to 106) mg/dL Calcium (8.4-10.2) mg/dL Total Bilirubin (0.2-1.3) mg/dL AST (17-59) U/L ALT (0-50) U/L Alkaline Phosphatase (38-126) U/L Troponin I < 0.012 (0.000-0.034) ng/mL NT-Pro-B Natriuret Pep (0-900) pg/mL Serum Total Protein (6.3-8.2) g/dL Albumin (3.5-5.0) g/dL Triglycerides 178 H (30-150) mg/dL Cholesterol 88 (50-200) mg/dL LDL Cholesterol < 36 (30-100) mg/dL HDL Cholesterol 34 L (40-60) mg/dL Heart Disease Risk Ratio 2.6 Urinalys Dipstick Clnc Urine Color (YELLOW) Urine Appearance (CLEAR) Urine pH (5-6) Ur Specific [place] (1.005-1.025) POC Urine Protein Conf (Negative) Urine Ketones (NEGATIVE) Urine Nitrite (NEGATIVE) Urine Bilirubin (NEGATIVE) Urine Urobilinogen (0-1) mg/dL Urine Leukocytes (NEGATIVE) Urine WBC (Auto) (0-5) /HPF Urine RBC (Auto) U Epithel Cells (Auto) (FEW) /HPF Urine Bacteria (Auto) Urine RBC (0-5) Gunnar/ul Ur Culture Indicated? Urine Glucose (NEGATIVE) mg/dL Influenza Type A Ag (NEGATIVE) Influenza Type B Ag (NEGATIVE) RSV (PCR) (Negative) SARS-CoV-2 (PCR) (NEGATIVE) 10/26/22 Range/Units 11:01 WBC (4.0-10.5) x10^3/uL RBC (4.1-5.6) x10^6/uL Hgb (12.5-18.0) g/dL Hct (42-50) % MCV (78-100) fL MCH (26-32) pg MCHC (32-36) g/dL RDW (11.5-14.0) % Plt Count (150-450) x10^3/uL MPV (7.5-11.0) fL Gran % (36.0-66.0) % Immature Gran % (Auto) (0.00-0.4) % Nucleat RBC Rel Count (0.00-0.1) % Eos # (Auto) (0-0.5) x10^3/uL Immature Gran # (Auto) (0.00-0.03) x10^3u/L Absolute Lymphs (auto) (1.0-4.6) x10^3/uL Absolute Monos (auto) (0.0-1.3) x10^3/uL Absolute Nucleated RBC (0.00-0.01) x10^3u/L Lymphocytes % (24.0-44.0) % Monocytes % (0.0-12.0) % Eosinophils % (0.00-5.0) % Basophils % (0.0-0.4) % Absolute Granulocytes (1.4-6.9) x10^3/uL Basophils # (0-0.4) x10^3/uL Sodium (137-145) mmol/L Potassium (3.5-5.1) mmol/L Chloride (98-107) mmol/L Carbon Dioxide (22-30) mmol/L Anion Gap (5-15) MEQ/L BUN (9-20) mg/dL Creatinine (0.66-1.25) mg/dL Estimated GFR ML/MIN Glucose (74-106) mg/dL POC Glucometer 166 H (74 to 106) mg/dL Calcium (8.4-10.2) mg/dL Total Bilirubin (0.2-1.3) mg/dL AST (17-59) U/L ALT (0-50) U/L Alkaline Phosphatase (38-126) U/L Troponin I (0.000-0.034) ng/mL NT-Pro-B Natriuret Pep (0-900) pg/mL Serum Total Protein (6.3-8.2) g/dL Albumin (3.5-5.0) g/dL Triglycerides (30-150) mg/dL Cholesterol (50-200) mg/dL LDL Cholesterol (30-100) mg/dL HDL Cholesterol (40-60) mg/dL Heart Disease Risk Ratio Urinalys Dipstick Clnc Urine Color (YELLOW) Urine Appearance (CLEAR) Urine pH (5-6) Ur Specific [place] (1.005-1.025) POC Urine Protein Conf (Negative) Urine Ketones (NEGATIVE) Urine Nitrite (NEGATIVE) Urine Bilirubin (NEGATIVE) Urine Urobilinogen (0-1) mg/dL Urine Leukocytes (NEGATIVE) Urine WBC (Auto) (0-5) /HPF Urine RBC (Auto) U Epithel Cells (Auto) (FEW) /HPF Urine Bacteria (Auto) Urine RBC (0-5) Gunn[place]/ul Ur Culture Indicated? Urine Glucose (NEGATIVE) mg/dL Influenza Type A Ag (NEGATIVE) Influenza Type B Ag (NEGATIVE) RSV (PCR) (Negative) SARS-CoV-2 (PCR) (NEGATIVE) Micro Results-Entire Visit: Accuchecks Date 10/26/22 Date 10/26/22 Time 11:18 Time 07:35 - Radiology Exams Ordered Rad Exams-Entire Visit: Radiology Procedures Category Date Time Status CHEST 1 VIEW (PORTABLE) Stat Exams 10/25/22 16:44 Completed CHEST WITH CONTRAST [CT] Urgent Exams 10/26/22 13:38 Ordered - Procedures and Test Procedures and Tests throughout Hospitalization: Therapy Orders & Screens 10/25/22 20:44 EKG [id number],QAMX3,PRN Comment: 10/25/22 21:44 Smoking Cessation Education ONCE Comment: Diagnosis: ACS Smoking Status: Current every day smoker Approximately how many cigarettes per day: 10 Do you dip or chew tobacco: No 10/26/22 01:00 EKG ROUTINE Comment: Diagnosis: ACS 10/27/22 05:00 EKG ROUTINE Comment: Diagnosis: ACS 10/28/22 05:00 EKG ROUTINE Comment: Diagnosis: ACS - Discharge Disposition: Home, Self-Care Condition: Stable Prescriptions: New RX: Albuterol Common Canister [Ventolin Common Canister] 2 puff IH Q4HPRN PRN 30 Days #1 inhaler PRN Reason: Shortness Of Breath/Wheezing RX: Trazodone HCl 50 mg [Desyrel 50 mg] 50 mg PO HS 30 Days #30 tablet No Action Metformin HCl [Metformin ER Osmotic] 1,000 mg PO BID RX: lisinopriL [Zestril] 2.5 mg PO DAILY Sertraline HCl [Zoloft] 50 mg PO DAILY Clopidogrel Bisulfate [PLAVIX Tablet] 75 mg PO DAILY Glipizide 5 mg [Glucotrol 5 MG] 10 mg PO BID Aspirin EC 81 mg [Ecotrin 81 mg] 81 mg PO DAILY RX: Pioglitazone HCl 30 mg PO DAILY RX: Tamsulosin HCl 0.4 mg [Flomax 0.4 MG] 0.4 mg PO DAILY Ferrous Sulfate 325 mg [Feosol 325 mg] 325 mg PO DAILY Atorvastatin Calcium [Lipitor] 80 mg PO HS RX: Famotidine 20 mg [Pepcid 20 MG] 20 mg PO BID Carvedilol 3.125 mg [Coreg 3.125 MG] 3.125 mg PO BID Instructions: Chest Pain (DC) Follow up with: JERONIMO BACA DO [Primary Care Provider] - 11/05/22 1:00 pm Forms: Discharge Instructions
[2022-10-26] MEDS ORDERED: Glucophage XR 500 MG PO SCH (18:00)
== END 2022-10-26 14:28 | disposition home or self-care (01) ==
LOC: ED 16:22 → MED SURG 20:40
PROVIDERS: ADMIT Family Medicine; ATTEND Family Medicine
DX: R07.9 Chest pain, unspecified (principal); I24.9 Acute ischemic heart disease, unspecified; I10 Essential (primary) hypertension; E78.5 Hyperlipidemia, unspecified; E11.9 Type 2 diabetes mellitus without complications; I25.2 Old myocardial infarction; Z72.0 Tobacco use; Z79.899 Other long term (current) drug therapy
CPT/HCPCS: 0241U; 36000; 36415; 71045; 80053; 80061; 81015; 82947; 83721; 83880; 84484; 85025; 93005; 93041; 94760; 99285; A9270-GY

== ENCOUNTER 2023-08-05 11:01 | Emergency (ER) | payer MEDICARE ==
--- NOTE | 2023-08-05 11:09 | ERPHSYRPT ---
- History of Present Illness Time Seen by Provider: 08/05/23 11:09 Source: patient Exam Limitations: no limitations Physician History: This is a 73-year-old white male patient of Dr. Morales who reports increasing pain tenderness, redness and swelling of the dorsal aspect of his right foot. He does not recall any injury to this area. He has no prior history of this type of entity. He has no history of gout. Patient is a diabetic. He does have a history of hypertension, hyperlipidemia. He also has a history of anxiety. He has a history of coronary disease having had a CABG in the past and is on Plavix. He has not had any fevers. Occurred: days ago (2) Quality: constant, sharpness Severity of Pain-Max: mild Severity of Pain-Current: mild Lower Extremities Pain: foot: right (Dorsal aspect) Modifying Factors: Improves With: movement Associated Symptoms: none Allergies/Adverse Reactions: Penicillins Allergy (Verified 08/05/23 11:37) Home Medications: Clopidogrel Bisulfate [PLAVIX Tablet] 75 mg PO DAILY 10/25/22 [History] Glipizide 5 mg [Glucotrol 5 MG] 10 mg PO BID 10/25/22 [History] Metformin HCl [Metformin ER Osmotic] 1,000 mg PO BID 10/25/22 [History] Sertraline HCl [Zoloft] 50 mg PO DAILY 10/25/22 [History] lisinopriL [Zestril] 2.5 mg PO DAILY 10/25/22 [History] Aspirin EC 81 mg [Ecotrin 81 mg] 81 mg PO DAILY 10/26/22 [History] Atorvastatin Calcium [Lipitor] 80 mg PO HS 10/26/22 [History] Carvedilol 3.125 mg [Coreg 3.125 MG] 3.125 mg PO BID 10/26/22 [History] Famotidine 20 mg [Pepcid 20 MG] 20 mg PO BID 10/26/22 [History] Ferrous Sulfate 325 mg [Feosol 325 mg] 325 mg PO DAILY 10/26/22 [History] Pioglitazone HCl 30 mg PO DAILY 10/26/22 [History] Tamsulosin HCl 0.4 mg [Flomax 0.4 MG] 0.4 mg PO DAILY 10/26/22 [History] Hx Influenza Vaccination/Date Given: Yes Travel Risk - International Travel Have you traveled outside of the country in past 3 weeks: No - Coronavirus Screening Are you exhibiting any of the following symptoms?: No Close contact with a COVID-19 positive Pt in past 14-21 Days: No - Vaccine Status Have you recieved a Covid-19 vaccination: Yes 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[employer] - Vaccination Dates Date of 2cond Vaccination (if applicable): 2020 - Review of Systems Constitutional: No Symptoms Eyes: No Symptoms Ears, Nose, & Throat: No Symptoms Respiratory: No Symptoms Cardiac: No Symptoms Abdominal/Gastrointestinal: No Symptoms Genitourinary Symptoms: No Symptoms Musculoskeletal: No Symptoms Skin: Other (Redness tenderness and swelling dorsal aspect right foot) Neurological: No Symptoms Psychological: No Symptoms Endocrine: No Symptoms Hematologic/Lymphatic: No Symptoms Immunological/Allergic: No Symptoms All Other Systems: Reviewed and Negative - Past Medical History Pertinent Past Medical History: Yes Neurological History: No Pertinent History ENT History: No Pertinent History Cardiac History: High Cholesterol, Hypertension, Myocardial Infarction ([place]) Respiratory History: No Pertinent History Endocrine Medical History: Diabetes Type II Musculoskeletal History: No Pertinent History GI Medical History: No Pertinent History History: No Pertinent History Psycho-Social History: Anxiety Male Reproductive Disorders: No Pertinent History - Past Surgical History Past Surgical History: Yes Neuro Surgical History: No Pertinent History Cardiac: CABG Gastrointestinal: No Pertinent History Genitourinary: No Pertinent History Musculoskeletal: Orthopedic Surgery Male Surgical History: No Pertinent History Other Surgical History: lt wrist, rt elbow, rt shoulder - Social History Smoking Status: Current every day smoker Exposure to second hand smoke: No Drug Use: none Patient Lives Alone: No - Nursing Vital Signs Nursing Vital Signs: Initial Vital Signs Temperature 98 F 08/05/23 11:02 Pulse Rate 85 08/05/23 11:02 Respiratory Rate 18 08/05/23 11:02 Blood Pressure 117/70 08/05/23 11:02 O2 Sat by Pulse Oximetry 94 L 08/05/23 11:02 Pain Scale Pain Intensity 10 - Physical Exam General Appearance: no apparent distress, alert, anxiety, thin Eyes, Ears, Nose, Throat Exam: normal ENT inspection, moist mucous membranes Neck Exam: normal inspection, non-tender, supple, full range of motion Cardiovascular/Respiratory Exam: chest non-tender, no respiratory distress Gastrointestinal/Abdominal Exam: non-tender Back Exam: normal inspection, normal range of motion, No CVA tenderness, No vertebral tenderness Hips Exam: bilateral: non-tender, normal inspection, normal range of motion, no evidence of injury Legs Exam: bilateral leg: non-tender, normal inspection, normal range of motion, no evidence of injury Knees Exam: bilateral knee: non-tender, normal inspection, normal range of motion, no evidence of injury Ankle Exam: bilateral ankle: non-tender, normal inspection, normal range of motion, no evidence of injury Foot Exam: right foot: soft tissue tenderness (Dorsal aspect right foot), swelling (Dorsal aspect right foot), left foot: non-tender, normal inspection, no evidence of injury, bilateral foot: normal range of motion Neuro/Tendon Exam: normal sensation, normal motor functions, normal tendon functions, responds to pain, no evidence tendon injury Mental Status Exam: alert, oriented x 3, cooperative Skin Exam: other (See above. Dorsal aspect right foot tenderness, redness and swelling) SpO2 Interpretation: borderline oxygenation O2 Delivery: Room Air - Course Nursing assessment & vital signs reviewed: Yes Ordered Tests: Active Orders 24 hr Category Date Time Status FOOT (MINIMUM 3 VIEWS) Stat Exams 08/05/23 12:41 Completed ESR [Erythrocyte Sedimentation Rate] Stat Lab 08/05/23 12:40 Received Uric Acid Stat Lab 08/05/23 12:40 Completed Lab/Rad Data: Laboratory Results 08/05/23 Range/Units 12:40 Uric Acid 5.5 (3.5-7.2) mg/dL - Progress Progress: unchanged Progress Note: 08/05/23 12:51 This patient's medical issue is 1 of low complexity. Level of complexity in the work-up performed is based on review of the patient's past medical history, review the patient's medication list, review the patient's drug allergy list, history of present illness and physical findings on examination. The work-up in this patient includes an x-ray of the right foot, sedimentation rate and uric acid level. 08/05/23 13:21 This patient's x-ray of the right foot was interpreted by the radiologist. I reviewed the impression. There is no evidence of any acute fracture or dislocation. 08/05/23 13:33 This patient's uric acid level is normal. I will be treating this patient as a localized cellulitis. We will place the patient on antibiotics and provide him a prescription for pain control. Counseled pt/family regarding: lab results, diagnosis, need for follow-up, rad results Medical Desision Making - Diagnostic Testing Diagnostic test were ordered, analyzed, and reviewed by me: Yes Radiological Interpretation: Reviewed by me, Teleradiologist Report - Risk of complications The pt has a mod risk of morbidity or mortality based on: Need for prescription drug management - Departure Departure Disposition: Home Clinical Impression: Cellulitis of right foot Condition: Stable Critical Care Time: No Referrals: PARUL FAIRCHILD NP [Nurse Practioner] - Follow up/PCP as directed Additional Instructions: Keep the skin of your lower extremities including your feet and toes clean and moistened with twice a day moisturizing lotion. Take your antibiotics as prescribed. Follow-up with your primary care provider today, by phone, to make arrangements for follow-up for further evaluation and management within the next 5 days Prescriptions: Hydrocodone/APAP 5/325 [[place] 5/325 mg] 1 each PO Q8H PRN PRN #6 tablet MDD 3 PRN Reason: Pain Ciprofloxacin [Cipro 500 MG] 500 mg PO BID #14 tablet
[2023-08-05 11:50] VITALS: RESP 18; TEMP 98
--- NOTE | 2023-08-05 13:15 | XRAY ---
Indication: Tenderness and swelling. Comparison: None 3 nonweightbearing views right foot using portable technique demonstrate osteopenia, minimal 1st MTP degenerative changes, and tiny plantar heel spur. No other bony, articular, or soft tissue abnormalities.
[2023-08-05 13:32] VITALS: BP 134/73; PULSE 76; O2SAT 94
== END 2023-08-05 13:54 | disposition home or self-care (01) ==
LOC: ED 11:01
DX: L03.115 Cellulitis of right lower limb (principal); M79.671 Pain in right foot; E11.9 Type 2 diabetes mellitus without complications; I10 Essential (primary) hypertension; E78.5 Hyperlipidemia, unspecified; Z79.02 Long term (current) use of antithrombotics/antiplatelets; Z79.84 Long term (current) use of oral hypoglycemic drugs; Z79.899 Other long term (current) drug therapy; Z72.0 Tobacco use
CPT/HCPCS: 36415; 73630; 84550; 85652; 99282

== ENCOUNTER 2023-10-20 10:54 | Day surgery (SDC) | payer MEDICARE ==
--- NOTE | 2023-10-19 13:22 | HP ---
DATE OF SURGERY: 10/20/2023 HISTORY OF PRESENT ILLNESS: The patient is a 73-year-old presents with a soft tissue mass of his left neck. It looks like the patient has had some kind of fine needle biopsy of this that did not show much. He presents for an open biopsy at this time. PAST MEDICAL HISTORY: Diabetes, hyperlipidemia, hypertension, gastroesophageal reflux disease, coronary artery disease. PAST SURGICAL HISTORY: Tonsillectomy. Coronary artery bypass graft. Left wrist. Right elbow. Right shoulder. ALLERGIES: PENICILLIN. MEDICATIONS: Glipizide, pioglitazone, Plavix, Pepcid, iron, lisinopril, aspirin, carvedilol, metformin, tamsulosin, trazodone, cyclobenzaprine, rosuvastatin. FAMILY HISTORY: Alzheimer's. SOCIAL HISTORY: Negative. REVIEW OF SYSTEMS: CONSTITUTIONAL: Denies fever or chills. CHEST: Denies shortness of breath. CVS: Denies chest pain. ABDOMEN: Denies abdominal pain. PHYSICAL EXAMINATION: GENERAL: No acute distress. CHEST: Nonlabored. No shortness of breath. CVS: Regular rate and rhythm. ABDOMEN: Soft. IMPRESSION: Left neck mass. PLAN: Open excisional biopsy of left soft tissue neck mass with Dr. Ignacio Glynn. As dictated by Rebeca Aldridge NP.
[~2023-10-20 10:54] MED LIST: Sensorcaine 0.25% 10 ML ONE
[2023-10-20] MEDS ORDERED: Lactated Ringers 1,000 ML IV SCH (11:30)
[2023-10-20 11:36] LABS: Hematocrit 36.4 % (42-50); Hemoglobin 11.4 g/dL (12.5-18.0); Mean Cell Volume 99.5 fL (78-100); Mean Corpuscular Hemoglobin 31.1 pg (26-32); Mean Corpuscular Hgb Concent. 31.3 g/dL (32-36); Platelet Count 133 x10^3/uL (150-450); Red Blood Count 3.66 x10^6/uL (4.1-5.6); Red Cell Distribution Width 13.9 % (11.5-14.0); White Blood Count 4.6 x10^3/uL (4.0-10.5)
[2023-10-20 11:50] LABS: ALBUMIN 4.3 g/dL (3.5-5.0); ANION GAP 12.7 MEQ/L (5-15); BILIRUBIN,TOTAL 0.4 mg/dL (0.2-1.3); Calcium 9.3 mg/dL (8.4-10.2); Creatinine 1 1.26 mg/dL (0.66-1.25); Potassium 4.5 mmol/L (3.5-5.1); Total Protein 7.4 g/dL (6.3-8.2)
[2023-10-20 11:51] VITALS: RESP 16
[2023-10-20] MEDS ORDERED: TORAdol 30 mg Injection ONE (13:06)
[2023-10-20] MEDS ORDERED: BRIDION 200MG/2ML IV ONE (13:06)
[2023-10-20] MEDS ORDERED: Decadron 4 MG INJ ONE (13:06)
[2023-10-20] MEDS ORDERED: SUBLIMAZE 100 MCG/2 ML ONE (13:06)
[2023-10-20] MEDS ORDERED: Zofran 4 MG/2 ML VIAL ONE (13:06)
[2023-10-20] MEDS ORDERED: Zemuron 100 MG/10 ML ONE (13:06)
[2023-10-20] MEDS ORDERED: Xylocaine-Mpf 2% 5 Ml Vial ONE (13:06)
[2023-10-20] MEDS ORDERED: DIPRIVAN 200 MG/20 ML IV ONE (13:06)
[2023-10-20] MEDS ORDERED: Amidate 20 MG/10 ML IV ONE (13:27)
[2023-10-20] MEDS ORDERED: DEXMEDETOMIDINE 80 MCG/20ML-NS IV ONE (13:27)
[2023-10-20] MEDS ORDERED: CLINDAMYCIN-D5W 900 MG/50 ML*** 900 MG/50 ML BAG IV ONE (13:34)
[2023-10-20] MEDS ORDERED: Ephedrine Sulfate 50 MG/ML ONE (13:49)
--- NOTE | 2023-10-20 14:55 | OP ---
SURGERY DATE/TIME: 10/20/2023 1328 PREOPERATIVE DIAGNOSIS: Left neck mass diagnosis unknown. POSTOPERATIVE DIAGNOSIS: Left neck mass diagnosis unknown. PROCEDURE: Excisional biopsy left neck mass. SURGEON: Ignacio Glynn M.D. [employer]FT CONTROLLER: Abdiel Castellanos M.D., [facility]. ANESTHESIA: General. COMPLICATIONS: None. CONDITION: Stable. INDICATION: The patient has new left neck mass, very irregular, very firm, very indurated and very fixated. It is unclear where this is from. He does not an obvious squamous cell primary. His mouth was palpated. His pharynx was visualized. It could be lymphomatous. It could be other. DESCRIPTION OF PROCEDURE: At this time it was elected to proceed with small incision 2 cm and small excisional biopsy basically shaved off the lesion. One piece sent for rapid testing and three pieces sent for permanent. Hemostasis obtained with electrocautery. Closed with 4-0 Vicryl and glue. The patient tolerated the procedure satisfactorily.
[2023-10-20 15:18] VITALS: BP 121/82; PULSE 74; TEMP 96.7; O2SAT 93
== END 2023-10-20 15:55 | disposition home or self-care (01) ==
LOC: SDC 10:54
PROVIDERS: ATTEND Surgery
DX: C44.42 Squamous cell carcinoma of skin of scalp and neck (principal); I10 Essential (primary) hypertension
CPT/HCPCS: 36415; 80053; 85027; 93005; 99100; J1100; J1885; J2405; J2704; J3010

== ENCOUNTER 2023-11-22 11:05 | Emergency (ER) | payer MEDICARE ==
[2023-11-22 11:26] VITALS: TEMP 97.9
[2023-11-22] MEDS ORDERED: TORAdol 30 mg Injection IM ONE (11:27)
--- NOTE | 2023-11-22 11:27 | ERPHSYRPT ---
- History of Present Illness Time Seen by Provider: 11/22/23 11:25 Source: patient Exam Limitations: no limitations Physician History: Patient is a 73-year-old male presents to our ED for evaluation of left upper chest wall pain. Patient states yesterday he was taking his garbage out. Patient was walking down a sloped driveway when his foot slipped causing him to fall. No BHT or LOC no neck pain. Cervical spine cleared clinically. Patient has an abrasion to his left elbow. Left upper chest wall tender to palpation. Patient states pain reproduced by movement and palpation. No associated chest pain or shortness of breath. No nausea vomiting or diaphoresis. No numbness tingling or weakness. No headache no blurred vision. Patient is ambulatory. Patient otherwise feels well. He voices no other complaints or concerns at this time. Portions of this note were created with voice recognition technology. There may be grammatical, spelling, punctuation or sound alike errors Timing/Duration: yesterday Severity: moderate Modifying Factors: Improves With: movement Associated Symptoms: denies symptoms Allergies/Adverse Reactions: Penicillins Allergy (Verified 11/22/23 11:26) Home Medications: Clopidogrel Bisulfate [PLAVIX Tablet] 75 mg PO DAILY 10/25/22 [History] Glipizide 5 mg [Glucotrol 5 MG] 10 mg PO BID 10/25/22 [History] Metformin HCl [Metformin ER Osmotic] 1,000 mg PO BID 10/25/22 [History] lisinopriL [Zestril] 2.5 mg PO DAILY 10/25/22 [History] Aspirin EC 81 mg [Ecotrin 81 mg] 81 mg PO DAILY 10/26/22 [History] Carvedilol 3.125 mg [Coreg 3.125 MG] 3.125 mg PO BID 10/26/22 [History] Famotidine 20 mg [Pepcid 20 MG] 20 mg PO BID 10/26/22 [History] Ferrous Sulfate 325 mg [Feosol 325 mg] 325 mg PO DAILY 10/26/22 [History] Pioglitazone HCl 30 mg PO DAILY 10/26/22 [History] Tamsulosin HCl 0.4 mg [Flomax 0.4 MG] 0.4 mg PO DAILY 10/26/22 [History] Cyclobenzaprine HCl 10 mg [Cyclobenzaprine 10 MG] 10 mg PO DAILY 08/23/23 [History] Rosuvastatin Calcium 10 mg PO DAILY 08/23/23 [History] Hx Tetanus, Diphtheria Vaccination/Date Given: Yes Hx Influenza Vaccination/Date Given: Yes Hx Pneumococcal Vaccination/Date Given: Yes Travel Risk - Vaccine Status Have you recieved a Covid-19 vaccination: Yes 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 Dates Date of 2cond Vaccination (if applicable): 2020 - Review of Systems Constitutional: No Symptoms, No Fever, No Chills Eyes: No Symptoms Ears, Nose, & Throat: No Symptoms Respiratory: No Symptoms, No Cough, No Dyspnea Cardiac: No Symptoms, No Chest Pain, No Edema, No Syncope Abdominal/Gastrointestinal: No Symptoms, No Abdominal Pain, No Nausea, No Vomiting, No Diarrhea Genitourinary Symptoms: No Symptoms, No Dysuria Musculoskeletal: No Symptoms, No Back Pain, No Neck Pain Skin: No Symptoms, No Rash Neurological: No Symptoms, No Dizziness, No Focal Weakness, No Sensory Changes Psychological: No Symptoms Endocrine: No Symptoms Hematologic/Lymphatic: No Symptoms Immunological/Allergic: No Symptoms All Other Systems: Reviewed and Negative - Past Medical History Pertinent Past Medical History: Yes Neurological History: No Pertinent History ENT History: No Pertinent History Cardiac History: High Cholesterol, Hypertension, Myocardial Infarction ([place]) Respiratory History: Asthma Endocrine Medical History: Diabetes Type II Musculoskeletal History: No Pertinent History GI Medical History: No Pertinent History History: No Pertinent History Psycho-Social History: Anxiety Male Reproductive Disorders: No Pertinent History - Past Surgical History Past Surgical History: Yes Neuro Surgical History: No Pertinent History Cardiac: CABG Gastrointestinal: No Pertinent History Genitourinary: No Pertinent History Musculoskeletal: Orthopedic Surgery Male Surgical History: No Pertinent History Other Surgical History: lt wrist, rt elbow, rt shoulder - Social History Smoking Status: Current every day smoker How long have you smoked: 20 years Exposure to second hand smoke: No Drug Use: none Patient Lives Alone: No - Nursing Vital Signs Nursing Vital Signs: Initial Vital Signs Temperature 97.9 F 11/22/23 11:15 Pulse Rate 81 11/22/23 11:15 Blood Pressure 126/79 11/22/23 11:15 O2 Sat by Pulse Oximetry 95 11/22/23 11:15 Pain Scale Pain Intensity 9 - Physical Exam General Appearance: no apparent distress, alert Eye Exam: PERRL/EOMI, eyes nml inspection Ears, Nose, Throat Exam: normal ENT inspection, TMs normal, pharynx normal, moist mucous membranes Neck Exam: normal inspection, non-tender, supple, full range of motion Respiratory Exam: normal breath sounds, lungs clear, airway intact, No respiratory distress Cardiovascular Exam: regular rate/rhythm, normal heart sounds, normal peripheral pulses, other (Tenderness to palpation left upper chest. Pain reproduced with movement and palpation. No pain with breathing. Overlying soft tissue intact) Gastrointestinal/Abdomen Exam: soft, normal bowel sounds, No tenderness, No mass Back Exam: normal inspection, normal range of motion, No CVA tenderness, No vertebral tenderness Extremity Exam: normal inspection, normal range of motion, pelvis stable, other (Superficial abrasion left lateral elbow. Normal range of motion. The involved extremities neurovascular intact distally compartments are soft cap refill less than 2 seconds.) Neurologic Exam: alert, oriented x 3, cooperative, normal mood/affect, nml cerebellar function, nml station & gait, sensation nml, No motor deficits Skin Exam: normal color, warm, dry, No rash Lymphatic Exam: No adenopathy SpO2 Interpretation: normal SpO2: 95 O2 Delivery: Room Air - Course Nursing assessment & vital signs reviewed: Yes - CT Exams Chest CT Interpretation: Tele-radiologist Report (Right upper lobe mass concerning for malignancy. Left fourth rib fracture) Ordered Tests: Active Orders 24 hr Category Date Time Status EKG-ER Only STAT Care 11/22/23 11:24 Active CHEST WITHOUT CONTRAST [CT] Stat Exams 11/22/23 11:21 Completed Medication Summary Discontinued Medications Generic Name Dose Route Start Last Admin Trade Name Freq PRN Reason Stop Dose Admin Bacitracin Zinc Confirm 11/22/23 12:12 Bacitracin Packet 1 Each Pckt Administered 11/22/23 12:13 Dose 1 each .ROUTE .STK-MED ONE Ketorolac Tromethamine 30 mg 11/22/23 11:27 11/22/23 12:31 Ketorolac Tromethamine 30 Mg/Ml Inj IM 11/22/23 11:28 30 mg STAT ONE Administration Ketorolac Tromethamine Confirm 11/22/23 11:58 Ketorolac Tromethamine 30 Mg/Ml Inj Administered 11/22/23 11:59 Dose 30 mg .ROUTE .STInspivia-MED ONE - Progress Progress: improved Progress Note: 73-year-old male presents to our ED for evaluation of left chest wall pain after a mechanical slip and fall yesterday while walking down a sloped driveway. Physical exam reveals tenderness along the anterolateral aspect of the left chest wall. CT scan reveals a fractured left fourth rib at the location of patient's tenderness. Additionally/incidentally patient has a right upper lobe mass. Patient states he is aware of this mass. He currently has a follow-up appointment scheduled for 08 December for this right upper lobe lung mass. So patient is aware of this mass and currently has follow-up for management of this mass. Patient reassessed. Pain improved. Patient received an incentive spirometer in our ED. Patient agrees to follow-up with his primary care doctor within 48 hours for evaluation. Patient states he is ready for discharge. He prescription for Toradol forwarded to patient's pharmacy. He voices no other complaints or concerns at this time. Screening EKG reveals a normal sinus rhythm no ischemic changes Portions of this note were created with voice recognition technology. There may be grammatical, spelling, punctuation or sound alike errors Complexity problem addressed is moderate acute complicated No critical care time Complex of data reviewed and analyzed is moderate. Test ordered test reviewed. Results analyzed and correlated clinically with history and physical examination. Risk of complication and or risk of morbidity/mortality of patient management is moderate. A prescription for Toradol forwarded to patient's pharmacy. Vital stable. Time spent to discharge patient is approximately 15 minutes. Plan of care established for shared decision making. No social determinants of health present impede follow-up. Portions of this note were created with voice recognition technology. There may be grammatical, spelling, punctuation or sound alike errors 11/22/23 13:50 Counseled pt/family regarding: diagnosis, need for follow-up, rad results - Departure Departure Disposition: Home Clinical Impression: Fall, Fracture of four ribs of left side, Mass of upper lobe of right lung, Abrasion of left elbow Condition: Stable Critical Care Time: No Referrals: DORA MADSEN MD [Primary Care Provider] - Follow up/PCP as directed Additional Instructions: Discharge/Care Plan KATHERINE LANG was seen on 11/22/23 in the Emergency Room. The patient was counseled regarding Diagnosis,Lab results, Imaging studies, need for follow up and when to return to the Emergency Room. Prescriptions given: Discharge Note I have spoken with the patient and/or caregivers. I have explained the patient's condition, diagnosis and treatment plan based on the information available to me at this time. I have answered the patient's and/or caregiver's questions and addressed any concerns. The patient and/or caregivers have as good understanding of the patient's diagnosis, condition and treatment plan as can be expected at this point. The vital signs have been stable. The patient's condition is stable and appropriate for discharge from the emergency department. The patient will pursue further outpatient evaluation with the primary care physician or other designated or consulting physician as outlined in the discharge instructions. The patient and/or caregivers are agreeable to this plan of care and follow-up instructions have been explained in detail. The patient and/or caregivers have received these instruction. The patient/and or caregivers are aware that any significant change in condition or worsening of symptoms should prompt an immediate return to this or the closest emergency department or call 911. Prescriptions: Ketorolac Trometh 10 mg Tab [TORAdol 10 MG TABLET] 10 mg PO TID 5 Days #15 tablet
[2023-11-22] MEDS ORDERED: TORAdol 30 mg Injection ONE (11:58)
[2023-11-22] MEDS ORDERED: BACIGUENT PACKET ONE (12:12)
--- NOTE | 2023-11-22 12:26 | XRAY ---
Indication: Chest pain following fall. Multiple contiguous axial images obtained through the chest without contrast. Comparison: November 11, 2023 Lungs again demonstrate grossly stable 2.8 x 2.6 x 2.5 cm irregular right upper lobe subpleural noncalcified mass and scattered bilateral peripheral fibrosis/scarring. New mild bilateral dependent atelectasis. No infiltrate, consolidation, effusion, or pneumothorax. Heart not enlarged again with CABG. Aorta again mildly arteriosclerotic without aneurysm. No pathologic mediastinal lymphadenopathy. Bony thorax demonstrates new tiny hairline cortical fracture anterior lateral arc left 4 rib. Remaining bony thorax intact again with osteopenia, mild degenerative changes throughout spine, and sternotomy wires. Limited upper abdomen including adrenal glands are unremarkable. Impression: 1. New hairline cortical fracture left 4 rib. 2. Again right upper lobe irregular noncalcified mass worrisome for malignancy. 3. Chronic findings including pulmonary fibrosis/scarring, arteriosclerotic disease, and chronic bony findings.
[2023-11-22 12:48] VITALS: BP 122/72
[2023-11-22 13:55] VITALS: O2SAT 95
[2023-11-22 13:59] VITALS: PULSE 76
== END 2023-11-22 14:02 | disposition home or self-care (01) ==
LOC: ED 11:05
DX: S22.42XA Multiple fractures of ribs, left side, initial encounter for closed fracture (principal); S50.312A Abrasion of left elbow, initial encounter; W01.0XXA Fall on same level from slipping, tripping and stumbling without subsequent striking against object, initial encounter; Y93.H9 Activity, other involving exterior property and land maintenance, building and construction; Y92.007 Garden or yard of unspecified non-institutional (private) residence as the place of occurrence of the external cause; R91.8 Other nonspecific abnormal finding of lung field; R07.9 Chest pain, unspecified; E78.5 Hyperlipidemia, unspecified; I10 Essential (primary) hypertension; E11.9 Type 2 diabetes mellitus without complications; Z79.02 Long term (current) use of antithrombotics/antiplatelets; Z79.84 Long term (current) use of oral hypoglycemic drugs; Z79.899 Other long term (current) drug therapy; Z72.0 Tobacco use
CPT/HCPCS: 71250; 93005; 96372; 99284; J1885; A9270-GY